=== PATIENT | female | born 1995 | race Caucasian/White ===

== ENCOUNTER 2017-02-01 12:38 | Emergency (ER) | payer BC ==
[~2017-02-01] VITALS: Ht 170.2 cm; Wt 65.1 kg
[~2017-02-01 12:38] MED LIST: BCPILLS PO
[2017-02-01 12:45] VITALS: TEMP 37; Ht 170.2 cm; Wt 65.1 kg
--- NOTE | 2017-02-01 13:27 | EMERGENCY ROOM VISIT NOTE ---
History Report prepared by Debby: Priyank Amos Under the Supervision of: Dr. Daryn Hopper M.D. First contact with patient: 12:53 Chief Complaint: FACIAL PAIN/INJURY Stated Complaint: SWOLLEN CHEEK, JAW PAIN History of Present Illness The patient is a 21 year old female who presents to the Emergency Room with complaints of constant left-lower tooth pain beginning yesterday. She currently rates her discomfort a 3/10 in severity. The patient states that she has not had her wisdom teeth extracted and believes that her two bottom wisdom teeth are still growing. She reports that she has not had problems with her teeth before. The patient reports that it feels like the inside of her cheek is swollen, and it is hard to open her mouth. The patient complains of a slight cough and a sorethroat. She denies an ear ache, fevers, chills, or being hit in the face. The patient states that she has been taking Ibuprofen, and it is helping. She notes that she is a student here, is from [place], [place], and does not have local dentist. The patient notes she spoke with her mom; her mom wanted her to make sure her tooth is not infected, and that she does not have the mumps. She reports that her child immunizations are up to date. Source of History: patient Onset: yesterday Position: teeth (left-lower) Symptom Intensity: 3/10 Timing: constant Modifying Factors (Relieving): ibuprofen Associated Symptoms: + cough, + sorethroat, No chills, No fevers Note: The patient denies an ear ache and being hit in the face. Review of Systems All systems have been listed, reviewed, and are negative other than those previously mentioned. Please see Additional Medical History Sheet. Past Medical & Surgical Medical Problems: (1) Psoriasis (2) Von Willebrands disease Surgical Problems: (1) Hernia Family History Blood clots Hypertension Kidney disease Kidney stones Social History Smoking Status: Never Smoker Marital Status: single Housing Status: lives with friends Occupation Status: [employer] student Current/Historical Medications Scheduled Control Pills ( Control Pills), 1 TAB PO DAILY Allergies Coded Allergies: No Known Allergies (Unverified , 02/01/17) Physical Exam Vital Signs Date Time Temp Pulse Resp B/P Pulse Ox O2 Delivery O2 Flow Rate FiO2 02/01/17 13:54 86 18 137/80 99 02/01/17 12:45 37.0 112 20 142/85 99 Room Air Physical Exam GENERAL: Patient awake, alert, oriented x 3. Patient follows commands. Patient does not appear toxic. Patient is adequately hydrated and well- nourished. SKIN: No erythema, pallor, cyanosis or rash HEENT: Normal head, pupils equal, reactive to light and accommodation. Ears normal. Oral cavity and posterior pharynx appear normal. Slight swelling of the left lower face, slight swelling near the left lower wisdom tooth Neck: Without adenopathy, no neck vein distention, no meningeal finding. LUNGS: Clear to auscultation. No wheezes, no rales, no rhonchi. HEART: No murmurs. No gallops. No rubs NEUROLOGIC: Cranial nerves II-XII within normal limits. No gross motor sensory function deficits. Medical Decision & Procedures Laboratory Results Laboratory results as stated above per my review. ED Course 1253: Past medical records reviewed. The patient was evaluated in room A11B. A complete history and physical examination was performed. I discussed the patient 's treatment plans. She verbalized agreement of the treatment plan. The patient was discharged home. Medical Decision I considered multiple diagnoses including: wisdom tooth impaction, infection, mumps. Medication Reconciliation: I attest that I have personally reviewed the patient' s current medication list. Blood pressure Screening: Patient was found to have normal blood pressure on screening and does not require follow up. Examination is most consistent with an impacted left lower wisdom tooth but the patient is very concerned about possible mumps. The patient does have some swelling of her left cheek area but no adenopathy. Mumps protocol was followed and blood, urine and swab were obtained. In the meantime the patient does not appear ill and I do not believe she requires quarantine at this point. Impression Primary Impression: Dental impaction Scribe Attestation The scribe's documentation has been prepared under my direction and personally reviewed by me in its entirety. I confirm that the note above accurately reflects all work, treatment, procedures, and medical decision making performed by me. Departure Information Dispostion Home / Self-Care Referrals No Doctor, Assigned (PCP) Patient Instructions My [facility] Additional Instructions Follow-up with your dentist as soon as possible. Mumps testing is pending. We will call you if your test is positive.
[2017-02-01 13:54] VITALS: BP 137/80; PULSE 86; O2SAT 99
== END 2017-02-01 13:55 | disposition home or self-care (01) ==
LOC: C.EDB 12:39 → C.EDA 13:55
DX: K01.1 Impacted teeth (principal); D68.0 Von Willebrand disease; L40.9 Psoriasis, unspecified; Z82.49 Family history of ischemic heart disease and other diseases of the circulatory system; Z84.1 Family history of disorders of kidney and ureter; Z79.3 Long term (current) use of hormonal contraceptives